=== PATIENT | male | born 1970 | race Caucasian/White ===

== ENCOUNTER 2018-02-11 22:43 | Emergency (ER) | payer SELFPAY ==
[~2018-02-11] VITALS: Ht 180.3 cm; Wt 90.7 kg
[2018-02-11] MEDS ORDERED: IV NS 0.9% 1,000 ML BAG IV ONE (23:00)
[2018-02-11] MEDS ORDERED: diphenhydrAMINE HCL 50 MG/ML VIAL IV ONE (23:00)
[2018-02-11] MEDS ORDERED: METOCLOPRAMIDE HCL 10 MG/2 ML VIAL IV ONE (23:00)
[2018-02-11] MEDS ORDERED: IV NS 0.9% 250 ML BAG IV ONE (23:00)
[2018-02-11] MEDS ORDERED: METOCLOPRAMIDE HCL 10 MG/2 ML VIAL ONE (23:13)
[2018-02-11] MEDS ORDERED: diphenhydrAMINE HCL 50 MG/ML VIAL ONE (23:14)
[2018-02-11 23:15] LABS: BASOPHILS % (AUTO) 0.2 % (0.0-2.0); EOSINOPHILS % (AUTO) 0.8 % (0.0-6.0); HEMATOCRIT 41 % (39-51); HEMOGLOBIN 13.5 g/dL (13.5-17.5); LYMPHOCYTES # (AUTO) 0.6 /CMM (0.8-4.8); LYMPHOCYTES % (AUTO) 9.4 % (20.0-44.0); MEAN CORPUSCULAR HEMOGLOBIN 30 PG (26.0-33.0); MEAN CORPUSCULAR HGB CONC 33 g/dl (31.0-36.0); MEAN CORPUSCULAR VOLUME 89 fL (80-96); MONOCYTES # (AUTO) 0.3 /CMM (0.1-1.30); MONOCYTES % (AUTO) 4.8 % (2.0-12.0); NEUTROPHILS # (AUTO) 5.8 /CMM (1.8-8.9); NEUTROPHILS % (AUTO) 84.8 % (43.0-81.0); PLATELET COUNT (AUTO) 241 /CMM (150-450); RDW COEFFICIENT OF VARIATION 13.2 (11.5-15.0); RED BLOOD CELL COUNT(AUTO) 4.56 MIL/uL (4.5-6.0); WHITE BLOOD COUNT (AUTO) 6.8 K/uL (4.3-11.0)
--- NOTE | 2018-02-11 23:15 | NUR ---
PT LEFT FOR CT.
[2018-02-11 23:24] LABS: CREATININE 1.1 mg/dL (0.6-1.3); POTASSIUM 3.5 mmol/L (3.5-5.1)
[2018-02-11 23:29] LABS: INR 0.98 (0.87-1.13)
--- NOTE | 2018-02-11 23:33 | NUR ---
PT RETURNED FROM CT.
[2018-02-12] MEDS ORDERED: PSEUDOEPHEDRINE HCL 30 MG TABLET PO ONE (00:30)
[2018-02-12] MEDS ORDERED: PSEUDOEPHEDRINE HCL 30 MG TABLET ONE (00:30)
--- NOTE | 2018-02-12 00:56 | NUR ---
IV removed. Catheter intact and site benign. Pressure and 4x4 applied to site. No bleeding noted.Patient discharged to home in stable condition. Written and verbal after care instructions given. Patient verbalizes understanding of instruction. PT AMBULATED OUT WITH A STEADY GAIT. VSS. PT'S IS DRIVING PT HOME.
[2018-02-12 00:57] VITALS: BP 111/77
== END 2018-02-12 00:56 | disposition home or self-care (01) ==
LOC: ER 22:49
DX: R51 Headache (principal); R19.7 Diarrhea, unspecified; B34.9 Viral infection, unspecified; R79.1 Abnormal coagulation profile; F41.9 Anxiety disorder, unspecified
CPT/HCPCS: 36415; 70450; 71045; 80048; 85025; 85730; 96361; 96374; 96375; 99285; A4606; J1200; J2765; J7030; J7050; Z7610